=== PATIENT | female | born 2000 | race Two or more races ===

== ENCOUNTER 2022-07-26 02:14 | Inpatient (IN) | payer OTHER ==
[~2022-07-26] VITALS: Ht 157.5 cm; Wt 77.1 kg
[2022-07-26] MEDS ORDERED: PRENATAL TABLE1 EAC1 PO (02:30)
== END 2022-07-27 09:43 | disposition home or self-care (01) | DRG 833 ==
LOC: OBS/DEL 02:14 → LDR 08:25 → OBS/DEL 08:25 → LDR 20:27
PROVIDERS: ADMIT Obstetrics & Gynecology Gynecology; ATTEND Obstetrics & Gynecology Gynecology
PROC: 4A1HXCZ Monitoring of Products of Conception, Cardiac Rate, External Approach (ICD-10-PCS; principal; 2022-07-26)
PROC: BY4FZZZ Ultrasonography of Third Trimester, Single Fetus (ICD-10-PCS; 2022-07-26)
DX: O60.03 Preterm labor without delivery, third trimester (principal); Z3A.35 35 weeks gestation of pregnancy; Z20.822 Contact with and (suspected) exposure to COVID-19

== ENCOUNTER 2022-08-15 05:35 | Inpatient (IN) | payer OTHER ==
[~2022-08-15] VITALS: Ht 157.5 cm; Wt 79.8 kg
[~2022-08-15 05:35] MED LIST: PRENATAL TABLE1 EAC1 PO
== END 2022-08-17 16:22 | disposition home or self-care (01) | DRG 768 ==
LOC: LDR 05:35 → OB/GYN 05:35 → LDR 08-19 11:10
PROVIDERS: ADMIT Obstetrics & Gynecology Gynecology; ATTEND Obstetrics & Gynecology Gynecology
PROC: 10D07Z6 Extraction of Products of Conception, Vacuum, Via Natural or Artificial Opening (ICD-10-PCS; principal; 2022-08-15)
PROC: 0DQR0ZZ Repair Anal Sphincter, Open Approach (ICD-10-PCS; 2022-08-15)
PROC: 0W8NXZZ Division of Female Perineum, External Approach (ICD-10-PCS; 2022-08-15)
PROC: 4A1HXCZ Monitoring of Products of Conception, Cardiac Rate, External Approach (ICD-10-PCS; 2022-08-15)
DX: O70.21 Third degree perineal laceration during delivery, IIIa (principal); O66.5 Attempted application of vacuum extractor and forceps; Z37.0 Single live birth; Z3A.39 39 weeks gestation of pregnancy; Z20.822 Contact with and (suspected) exposure to COVID-19

== ENCOUNTER 2023-05-23 18:21 | Emergency (ER) | payer OTHER ==
[~2023-05-23] VITALS: Ht 157.5 cm; Wt 70.3 kg
[2023-05-23] MEDS ORDERED: ACETAMINOPHEN 500 MG GEL..CAP PO ONE (20:00)
[2023-05-23 20:37] LABS: HEMATOCRIT 39.8 % (36.0-45.00); HEMOGLOBIN 12.9 g/dL (12.0-15.00); MEAN CELL VOLUME 77.4 fL (80.00-100.00); MEAN CORPUSCULAR HEMOGLOBIN 25.1 pg (27.00-32.0); MEAN CORPUSCULAR HGB CONC 32.4 g/dl (32.0-36.0); PLATELET COUNT 243 K/uL (150-450); RED BLOOD COUNT 5.14 M/uL (4.00-6.00)
[2023-05-23 20:51] LABS: CALCIUM 9.1 mg/dL (8.5-10.1); CREATININE SERUM 0.88 mg/dL (0.55-1.02); GFR 78.29; POTASSIUM 4.39 mEq/L (3.5-5.1)
== END 2023-05-23 22:59 ==
LOC: ER 18:21
PROVIDERS: Nurse Practitioner Family
DX: G44.209 Tension-type headache, unspecified, not intractable (principal); Z20.822 Contact with and (suspected) exposure to COVID-19